=== PATIENT | female | born 2000 | race Asian ===

== ENCOUNTER 2025-04-23 22:12 | Inpatient (IN) | payer OTHER ==
[~2025-04-23] VITALS: Ht 157.5 cm; Wt 54.5 kg
[2025-04-23 22:53] LABS: PLATELET COUNT, AUTOMATED 381 10^3/uL (150-450)
[2025-04-23 23:09] LABS: ETHYL ALCOHOL (ETHANOL) < 0.003 % (0.000-0.010); SALICYLATE LEVEL < 3.0 MG/DL (<30)
[2025-04-23 23:10] LABS: ALT/SGPT 14 U/L (7.0-40); AST/SGOT 19 U/L (<34); CALCIUM LEVEL 10.4 MG/DL (8.5-10.1); CARBON DIOXIDE LEVEL 21 MMOL/L (20-31); CHLORIDE LEVEL 106 MMOL/L (98-107); CREATININE FOR GFR 0.82 MG/DL (0.55-1.30); GLOMERULAR FILTRATION RATE > 90.0 (>60); POTASSIUM SERUM 3.9 MMOL/L (3.5-5.1); SODIUM LEVEL 143 MMOL/L (136-145)
[2025-04-23 23:37] LABS: HIV 1&2 SCREEN NEGATIVE (NEGATIVE)
[2025-04-24 00:10] LABS: KETONE, URINE AUTO RFX 2+ mg/dL (NEGATIVE); MUCUS, URINE RFX LARGE (NEGATIVE); RBC, URINE AUTO RFX 6 /HPF (0-3); SQUAM EPITHELIAL CELL UR AURFX 20 /HPF (0-6)
[2025-04-24 00:23] LABS: LEUKOCYTE ESTERASE UR AUTO RFX 1+ (NEGATIVE); NITRITE, URINE AUTO RFX POSITIVE (NEGATIVE); WBC, URINE AUTO RFX 32 /HPF (0-3)
[2025-04-24 00:29] LABS: AMPHETAMINES LEVEL URINE NEGATIVE (NEGATIVE); BARBITURATES URINE NEGATIVE (NEGATIVE); BENZODIAZEPINES URINE NEGATIVE (NEGATIVE); CANNABINOIDS URINE NEGATIVE (NEGATIVE); COCAINE METABOLITE URINE NEGATIVE (NEGATIVE); METHADONE URINE NEGATIVE (NEGATIVE); OPIATES URINE NEGATIVE (NEGATIVE); PHENCYCLIDINE URINE NEGATIVE (NEGATIVE)
[2025-04-24 00:39] LABS: HCG, SERUM QUALITATIVE NEGATIVE (NEGATIVE)
[2025-04-24] MEDS: NITROFURANTOIN 100 MG CAP PO ONE (01:35)
[2025-04-24] MEDS ORDERED: MAALOX 30 ML SUSP *UDC PO PRN (02:30)
[2025-04-24] MEDS ORDERED: IBUPROFEN 400 MG TAB PO PRN (02:30)
[2025-04-24] MEDS ORDERED: MOM 30 ML SUSPENSION UDC PO PRN (02:30)
[2025-04-24 03:09] VITALS: BP 116/68; TEMP 96.6; O2SAT 100
[2025-04-24] MEDS: ACETAMINOPHEN 325 MG TAB PO PRN (04:01)
[2025-04-24 06:16] VITALS: BP 102/61; TEMP 97.3; O2SAT 99
[2025-04-24] MEDS ORDERED: HOME MED LIST COMPLETE! XX SCH (12:10)
[2025-04-24] MEDS: NICOTINE 14 MG/24 HR TRANSDERMAL TD SCH (13:19)
[2025-04-24] MEDS: CEFDINIR 300 MG CAP PO SCH (13:19)
[2025-04-24] MEDS: buPROPion **XL** 150 MG TABLET PO SCH (14:17)
[2025-04-24 16:24] VITALS: BP 110/54; TEMP 98.1; O2SAT 100
[2025-04-24] MEDS: traZODone 50 MG TAB PO PRN (20:34)
[2025-04-25 06:41] VITALS: BP 101/57; TEMP 97.5; O2SAT 99
[2025-04-25 15:29] VITALS: BP 120/60; TEMP 97.6; O2SAT 100
[2025-04-26 06:53] VITALS: BP 95/59; TEMP 98.4; O2SAT 100
[2025-04-26 15:15] VITALS: BP 105/57; TEMP 98; O2SAT 100
[2025-04-26] MEDS: traZODone 50 MG TAB PO SCH (20:16)
[2025-04-27 06:48] VITALS: BP 111/57; TEMP 97.9; O2SAT 99
[2025-04-27 15:05] VITALS: BP 129/78; TEMP 98.7; O2SAT 98
[2025-04-27] MEDS ORDERED: traZODone 50 MG TAB PO PRN (15:05)
[2025-04-27] MEDS: QUEtiapine FUMARATE 50MG TAB PO SCH (20:03)
[2025-04-28 06:53] VITALS: BP 103/57; TEMP 97.6; O2SAT 99
[2025-04-28 15:42] VITALS: BP 114/68; TEMP 98.4; O2SAT 99
[2025-04-29] MEDS ORDERED: BUPR150T12 PO (01:56)
[2025-04-29] MEDS ORDERED: TRAZ-252 PO (01:56)
[2025-04-29] MEDS ORDERED: ABIL1TAB11 PO (01:56)
[2025-04-29] MEDS ORDERED: QUET50TA4 PO (01:56)
[2025-04-29] MEDS ORDERED: HYDR-3363 PO (01:56)
[2025-04-29 06:43] VITALS: BP 121/71; TEMP 97.8; O2SAT 100
== END 2025-04-29 11:59 | disposition home or self-care (01) | DRG 885 ==
LOC: M ED 22:12 → M ED INP 04-24 02:28 → M PSY 04-24 03:10
PROVIDERS: ADMIT Psychiatry & Neurology Neurology; ATTEND Psychiatry & Neurology Neurology
DX: F33.1 Major depressive disorder, recurrent, moderate (principal); R45.851 Suicidal ideations; Z91.51 Personal history of suicidal behavior; Z63.0 Problems in relationship with spouse or partner; Z62.811 Personal history of psychological abuse in childhood; F41.9 Anxiety disorder, unspecified; Z91.018 Allergy to other foods; Z91.040 Latex allergy status; F17.210 Nicotine dependence, cigarettes, uncomplicated

== ENCOUNTER 2025-07-02 11:59 | Emergency (ER) | payer OTHER ==
[~2025-07-02] VITALS: Ht 157.5 cm; Wt 54.5 kg
[~2025-07-02 11:59] MED LIST: ABIL1TAB11 PO; BUPR150T12 PO; HYDR-3363 PO; QUET50TA4 PO; TRAZ-252 PO
[2025-07-02 12:40] LABS: PLATELET COUNT, AUTOMATED 395 10^3/uL (150-450)
[2025-07-02] MEDS ORDERED: ABIL1TAB11 PO (13:02)
[2025-07-02] MEDS ORDERED: HYDR-3363 PO (13:02)
[2025-07-02] MEDS ORDERED: BUPR150T12 PO (13:02)
[2025-07-02] MEDS ORDERED: TRAZ-252 PO (13:03)
[2025-07-02] MEDS ORDERED: QUET50TA4 PO (13:03)
[2025-07-02] MEDS ORDERED: HOME MED LIST COMPLETE! XX SCH (13:05)
[2025-07-02 13:06] LABS: AMPHETAMINES LEVEL URINE NEGATIVE (NEGATIVE); BARBITURATES URINE NEGATIVE (NEGATIVE); BENZODIAZEPINES URINE NEGATIVE (NEGATIVE); CANNABINOIDS URINE NEGATIVE (NEGATIVE); COCAINE METABOLITE URINE NEGATIVE (NEGATIVE); METHADONE URINE NEGATIVE (NEGATIVE); OPIATES URINE NEGATIVE (NEGATIVE); PHENCYCLIDINE URINE NEGATIVE (NEGATIVE)
[2025-07-02 13:11] LABS: ETHYL ALCOHOL (ETHANOL) < 0.003 % (0.000-0.010)
[2025-07-02 13:12] LABS: SALICYLATE LEVEL < 3.0 MG/DL (<30)
[2025-07-02 13:13] LABS: ALT/SGPT 16 U/L (7.0-40); AST/SGOT 19 U/L (<34); CALCIUM LEVEL 9.6 MG/DL (8.5-10.1); CARBON DIOXIDE LEVEL 27 MMOL/L (20-31); CHLORIDE LEVEL 105 MMOL/L (98-107); CREATININE FOR GFR 0.90 MG/DL (0.55-1.30); GLOMERULAR FILTRATION RATE > 90.0 (>60); POTASSIUM SERUM 4.2 MMOL/L (3.5-5.1); SODIUM LEVEL 137 MMOL/L (136-145)
[2025-07-02 13:41] LABS: HCG, SERUM QUALITATIVE NEGATIVE (NEGATIVE)
[2025-07-02] MEDS: NICOTINE 21 MG/24 HR 1 EA TRANSDERMAL TD ONE (19:57)
[2025-07-03 12:27] VITALS: BP 101/64; TEMP 98.1; O2SAT 98
== END 2025-07-03 12:36 ==
LOC: M ED 11:59 → EDBD 11:59 → M ED 07-03 12:36
DX: R45.851 Suicidal ideations (principal); F32.A Depression, unspecified; F10.10 Alcohol abuse, uncomplicated; Z91.040 Latex allergy status; Z91.018 Allergy to other foods; Z79.899 Other long term (current) drug therapy